=== PATIENT | female | born 1990 | race Caucasian/White ===

== ENCOUNTER 2017-10-19 12:56 | Emergency (ER) | payer OTHER, SELFPAY ==
[2017-10-19] MEDS ORDERED: NA CHLORIDE 0.9% 1,000 ML ONE (14:10)
[2017-10-19] MEDS ORDERED: IBUPROFEN 400 MG TAB ONE (14:10)
[2017-10-19] MEDS ORDERED: METHOCARBAMOL 500 MG TAB ONE (14:11)
[2017-10-19 14:25] LABS: Absolute Lymphocytes (CBC) 2.2 K/uL (0.7-4.9); Absolute Monocytes 0.7 K/uL (0.1-1.3); Absolute Neutrophil 6.3 K/uL (1.8-8.0); Basophils % 0.8 % (0-1.3); Hematocrit 38.6 % (36.0-45.0); MCH 31.4 pg (27.0-35.0); MCV 95.3 fL (80-100); MPV 10.3 fL (7.6-11.3); Monocytes % 7.9 % (3.3-12.3); Protime INR 1.03; RBC Red Blood Cell Count 4.05 M/uL (3.86-4.86)
[2017-10-19 14:37] LABS: Bicarbonate 26 mEq/L (21-31); Glucose Level 104 mg/dL (65-120); Potassium 3.3 mEq/L (3.6-5.0); Sodium Level 140 mEq/L (135-145)
[2017-10-19 14:41] LABS: BUN Blood Urea Nitrogen 6 mg/dL (6-20); Creatine Phosphokinase 456 IU/L (22-269); Glomerular Filtration Rate > 90 mL/min (=/>90)
[2017-10-19 15:26] LABS: Barbiturates NEGATIVE; Benzodiazepines NEGATIVE; Cocaine POSITIVE; METHAMPHETAM NEGATIVE; Opiates NEGATIVE; Phencyclidine NEGATIVE; THC Cannibis NEGATIVE
--- NOTE | 2017-10-19 15:37 | ER ---
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 Transition of care: patient was not received from another setting of care. Onset of symptoms was October 16, 2017. Care prior to arrival: None. 13:13 Method Of Arrival: Ambulatory 13:13 Method Of Arrival: Ambulatory 13:13 Acuity: MARTÍN 4 hj Triage Assessment: 13:16 General: Appears in no apparent distress. uncomfortable, Behavior is calm, cooperative, hj appropriate for age. Pain: Complains of pain in anterior aspect of right shoulder. 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 - Family history:: not pertinent. - Social history:: Smoking status: Patient uses tobacco products, denies chronic smoking, but will smoke occasionally. - Hospitalizations: : No recent hospitalization is reported. Screenin:15 Abuse screen: Denies threats or abuse. Nutritional screening: No deficits noted. tl3 Tuberculosis screening: No symptoms or risk factors identified. Fall Risk None identified. Assessment: 13:16 Neuro: Level of Consciousness is awake, alert, obeys commands, Oriented to person, hj place, time, situation. 13:30 Reassessment: pt reports that she helped her sister move a TV three days ago and has tl3 been having muscle pain ever since, but has gotten worse today. Pt has cutting scars to left wrist area, states that it was a problem in the past, on no medications at this time. General: Appears in no apparent distress. slender, well groomed, well developed, well nourished. Pain:. Neuro: Level of Consciousness is awake, alert, obeys commands, Oriented to person, place, time, situation, Appropriate for age. Cardiovascular: Heart tones S1 S2 present Capillary refill < 3 seconds. Cardiovascular: Rhythm is sinus rhythm. Respiratory: Airway is patent Trachea midline Breath sounds are clear bilaterally. GI: No signs and/or symptoms were reported involving the gastrointestinal system. Abdomen is flat. : No signs and/or symptoms were reported regarding the genitourinary system. EENT: No signs and/or symptoms were reported regarding the EENT system. Derm: No signs and/or symptoms reported regarding the dermatologic system. Musculoskeletal: No signs and/or symptoms reported regarding the musculoskeletal system. 14:56 Reassessment: Patient appears in no apparent distress at this time. No changes from tl3 previously documented assessment. Patient and/or family updated on plan of care and expected duration. Pain level reassessed. Patient is alert, oriented x 3, equal unlabored respirations, skin warm/dry/pink. pt states that she still is feeling pain. 15:37 Reassessment: Patient appears in no apparent distress at this time. No changes from tl3 previously documented assessment. Patient and/or family updated on plan of care and expected duration. Pain level reassessed. Patient is alert, oriented x 3, equal unlabored respirations, skin warm/dry/pink. spoke with pt concerning cocaine use, stressed side effects of irregular HR, and possible heart attack. Pt stated that she only used today because someone told her it would help her pain, which it did not. Vital Signs: 13:17 BP 144 / 91; Pulse 136; Resp 18; Temp 98.1(TE); Pulse Ox 99% on R/A; Weight 61.23 kg; hj Height 5 ft. 0 in. (152.40 cm); Pain 7/10; 14:15 BP 111 / 73; Pulse 103; Resp 16; Pulse Ox 98% ; tl3 15:37 BP 129 / 86; Pulse 94; Resp 16; Pulse Ox 98% ; tl3 13:17 Body Mass Index 26.36 (61.23 kg, 152.40 cm) ED Course: 13:00 Patient arrived in ED. 4 13:15 Triage completed. 13:16 Sara Méndez, PIPPA is Primary Nurse. tl3 13:16 Arm band placed on right wrist. hj 13:22 [facility] kav 13:22 Joshua Arthur MD is Attending Physician. kav 13:50 Initial lab(s) drawn, by me, sent to lab. Inserted saline lock: 22 gauge in left hand, tl3 using aseptic technique. Blood collected. 14:02 EKG done, by ED staff, reviewed by Joshua Arthur MD. at1 14:15 Patient has correct armband on for positive identification. Placed in gown. Bed in low tl3 position. Call light in reach. Side rails up X 1. nurse monitoring on. Pulse ox on. NIBP on. Door closed. Lights dimmed. Warm blanket given. 14:15 No provider procedures requiring assistance completed. tl3 14:56 Urine collected: clean catch specimen, clear. tl3 15:16 Urine Dipstick--Ancillary (enter results) Sent. tl3 16:15 IV discontinued, intact, bleeding controlled, No redness/swelling at site. Pressure iw dressing applied. Administered Medications: 13:55 Drug: NS 0.9% 1000 ml Route: IV; Rate: 1 bolus; Site: left hand; Delivery: Primary tl3 tubing; 14:55 Follow up: IV Status: Completed infusion; IV Intake: 1000ml tl3 13:55 Drug: Ibuprofen 400 mg {Note: pt only wanted to take 400mg.} Route: PO; tl3 14:56 Follow up: Response: No adverse reaction tl3 14:17 Not Given (order changed ): Robaxin 750 mg PO once tl3 14:18 Drug: Robaxin 500 mg Route: PO; tl3 14:56 Follow up: Response: No adverse reaction tl3 15:29 Not Given (no medication available): Dilaudid 0.5 mg IVP once kav 15:35 Drug: Potassium Chloride 20 mEq Route: PO; tl3 15:35 Drug: morphine 4 mg Route: IVP; Infused Over: 3 mins; Site: left hand; tl3 15:36 Drug: Zofran 4 mg Route: IVP; Infused Over: 3 mins; Site: left hand; tl3 Intake: 14:55 IV: 1000ml; Total: 1000ml. tl3 Outcome: 15:36 Discharge ordered by . kav 16:15 Discharged to home ambulatory. iw 16:15 Condition: good 16:15 Discharge instructions given to patient, Instructed on discharge instructions, follow up and referral plans. Demonstrated understanding of instructions, follow-up care, medications, Prescriptions given X 2. 16:31 Patient left the ED. tl3 Signatures: Nikki Tejada, DIRECTOR OF OCCUPATIONAL THERAPY DIRECTOR OF OCCUPATIONAL THERAPY Josie Singh RN RN iw Cami coon, livestock handler EKG Tat1 Taurus Silverman RN Xochilt Sheehan rg4 Sara Méndez RN RN tl3 Corrections: (The following items were deleted from the chart) 13:15 13:13 Presenting complaint: Patient states: at home, i was lifting a TV and mount it on hj the wall and 2 hours after i noticed pain on the R shoulder and R side of the neck; pain with ROM on the affected side; 13:20 13:13 Presenting complaint: Patient states: last Tuesday at home, i was lifting a TV and hj mount it on the wall and 2 hours after i noticed pain on the R shoulder and R side of the neck; pain with ROM on the affected side; 13:20 13:17 Pulse 136bpm; Resp 18bpm; Pulse Ox 99% RA; Temp 98.1F Temporal; 61.23 kg; Height 5 ft. 0 in.; BMI: 26.3; Pain 7/10; 14:15 13:16 PMHx: None; tl3 14:22 13:55 Ibuprofen 800 mg PO tl3 tl3
--- NOTE | 2017-10-19 15:37 | EDPHYS ---
Physician Documentation [facility] Name: Katherine Fragoso Age: 27 yrs Sex: Female : 1990 Arrival Date: 10/19/2017 Time: 13:00 Bed 23 Private MD: ED Physician Joshua Arthur HPI: 10/19 13:22 This 27 yrs old Female presents to ER via Ambulatory with complaints of kav Shoulder Pain, Neck Pain, >24Hrs Old. 13:33 The patient or guardian complains of pain, that is acute, spasm, stiffness. right kav trapezius. Context: The problem was sustained at home, resulted from lifting or carrying, a heavy object, wall mounted television set, The patient experiences decreased range of motion, when attempts to raise arm, The patient reports no obvious deformity. Onset: The symptoms/episode began/occurred acutely, 3 day(s) ago. Modifying factors: the symptoms are alleviated by OTC meds, The symptoms are aggravated by movement. Associated signs and symptoms: The patient has no apparent associated signs or symptoms. Severity of symptoms: At their worst the symptoms were moderate, just prior to arrival. Treatment prior to arrival includes: over the counter medications, Excederin two tabs \T\ 11:30 am. The patient has not experienced similar symptoms in the past. The patient has not recently seen a physician. 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 - Family history:: not pertinent. - Social history:: Smoking status: Patient uses tobacco products, denies chronic smoking, but will smoke occasionally. - Hospitalizations: : No recent hospitalization is reported. ROS: 13:36 Constitutional: Negative for fever, chills, and weight loss, Eyes: Negative for injury, kav pain, redness, and discharge, ENT: Negative for injury, pain, and discharge, Neck: Negative for injury, pain, and swelling, Cardiovascular: Negative for chest pain, palpitations, and edema, Respiratory: Negative for shortness of breath, cough, wheezing, and pleuritic chest pain, Abdomen/GI: Negative for abdominal pain, nausea, vomiting, diarrhea, and constipation, Back: Negative for injury and pain, : Negative for injury, bleeding, discharge, and swelling, Skin: Negative for injury, rash, and discoloration, Neuro: Negative for headache, weakness, numbness, tingling, and seizure, Psych: Negative for depression, anxiety, suicide ideation, homicidal ideation, and hallucinations, Allergy/Immunology: Negative for hives, rash, and allergies, Endocrine: Negative for neck swelling, polydipsia, polyuria, polyphagia, and marked weight changes, Hematologic/Lymphatic: Negative for swollen nodes, abnormal bleeding, and unusual bruising. 13:36 MS/extremity: Positive for pain, tenderness. Exam: 13:36 Constitutional: This is a well developed, well nourished patient who is awake, alert, kav and in no acute distress. Head/Face: Normocephalic, atraumatic. Eyes: Pupils equal round and reactive to light, extra-ocular motions intact. Lids and lashes normal. Conjunctiva and sclera are non-icteric and not injected. Cornea within normal limits. Periorbital areas with no swelling, redness, or edema. ENT: Nares patent. No nasal discharge, no septal abnormalities noted. Tympanic membranes are normal and external auditory canals are clear. Oropharynx with no redness, swelling, or masses, exudates, or evidence of obstruction, uvula midline. Mucous membranes moist. Neck: Trachea midline, no thyromegaly or masses palpated, and no cervical lymphadenopathy. Supple, full range of motion without nuchal rigidity, or vertebral point tenderness. No Meningismus. Chest/axilla: Normal chest wall appearance and motion. Nontender with no deformity. No lesions are appreciated. Cardiovascular: Regular rate and rhythm with a normal S1 and S2. No gallops, murmurs, or rubs. Normal PMI, no JVD. No pulse deficits. Respiratory: Lungs have equal breath sounds bilaterally, clear to auscultation and percussion. No rales, rhonchi or wheezes noted. No increased work of breathing, no retractions or nasal flaring. Abdomen/GI: Soft, non-tender, with normal bowel sounds. No distension or tympany. No guarding or rebound. No evidence of tenderness throughout. Back: No spinal tenderness. No costovertebral tenderness. Full range of motion. Skin: Warm, dry with normal turgor. Normal color with no rashes, no lesions, and no evidence of cellulitis. Neuro: Awake and alert, GCS 15, oriented to person, place, time, and situation. Cranial nerves II-XII grossly intact. Motor strength 5/5 in all extremities. Sensory grossly intact. Cerebellar exam normal. Normal gait. Psych: Awake, alert, with orientation to person, place and time. Behavior, mood, and affect are within normal limits. 13:36 Musculoskeletal/extremity: Extremities: noted in the right trapezius and right scapular area: ROM: limited active range of motion, Circulation is intact in all extremities. Pulses: are normal with no appreciated deficits, Perfusion: the patient is normally perfused throughout, pink, warm, noted to have brisk capillary refill, Perfusion: the extremity is normally perfused throughout, pink, warm, with brisk capillary refill, Sensation intact. Joints: Tendon exam: specific tendon testing normal through active and passive range of motion Vital Signs: 13:17 BP 144 / 91; Pulse 136; Resp 18; Temp 98.1(TE); Pulse Ox 99% on R/A; Weight 61.23 kg; hj Height 5 ft. 0 in. (152.40 cm); Pain 7/10; 14:15 BP 111 / 73; Pulse 103; Resp 16; Pulse Ox 98% ; tl3 15:37 BP 129 / 86; Pulse 94; Resp 16; Pulse Ox 98% ; tl3 13:17 Body Mass Index 26.36 (61.23 kg, 152.40 cm) hj MDM: 13:22 Patient medically screened. kav 15:10 Data reviewed: vital signs, nurses notes, lab test result(s). ED course: c/o nausea and kav continued neck pain. 10/19 13:39 Order name: Basic Metabolic Panel kav 10/19 13:39 Order name: CBC with Diff v 10/19 13:39 Order name: Ckmb kav 10/19 13:39 Order name: CPK kav 10/19 13:39 Order name: PT-INR kav 10/19 13:39 Order name: Ptt, Activated kav 10/19 13:39 Order name: Troponin (emerg Dept Use Only) kav 10/19 14:02 Order name: Urine Drug Screen v 10/19 14:28 Order name: Protime (+INR); Complete Time: 15:07 EDMS 10/19 15:07 Interpretation: Within normal limits. 10/19 14:28 Order name: PTT, Activated Partial Thromb; Complete Time: 15:07 EDMS 10/19 15:07 Interpretation: Within normal limits. 10/19 14:28 Order name: CBC with Automated Diff; Complete Time: 15:05 EDMS 10/19 15:05 Interpretation: Within normal limits. 10/19 14:38 Order name: Basic Metabolic Panel; Complete Time: 15:06 EDMS 10/19 15:06 Interpretation: Normal except: K 3.3. 10/19 14:41 Order name: Creatine Phosphokinase; Complete Time: 15:07 EDMS 10/19 15:07 Interpretation: Abnormal: CPK 456. 10/19 14:45 Order name: Troponin (Emerg Dept Use Only); Complete Time: 15:06 EDMS 10/19 15:06 Interpretation: Within normal limits. 10/19 13:39 Order name: EKG; Complete Time: 13:40 v 10/19 13:39 Order name: Cardiac monitoring; Complete Time: 13:48 10/19 13:39 Order name: EKG - Nurse/Tech; Complete Time: 13:48 v 10/19 13:39 Order name: IV Saline Lock; Complete Time: 13:48 10/19 14:48 Order name: CKMB Creatine Kinase MB; Complete Time: 15:05 EDMS 10/19 15:05 Interpretation: Within normal limits. 10/19 15:11 Order name: Urine Dipstick--Ancillary (enter results) ms 10/19 15:26 Order name: Urine Drug Screen; Complete Time: 15:29 EDMS 10/19 15:29 Interpretation: Normal except: ELOINA POSITIVE. 10/19 15:43 Order name: Urine Dipstick-Ancillary; Complete Time: 16:04 EDMS 10/19 16:04 Interpretation: Within normal limits. 10/19 13:39 Order name: Labs collected and sent; Complete Time: 13:48 10/19 13:39 Order name: O2 Per Protocol; Complete Time: 13:48 10/19 13:39 Order name: O2 Sat Monitoring; Complete Time: 13:48 kav 10/19 13:39 Order name: Urine Dipstick-Ancillary (obtain specimen); Complete Time: 15:11 kav Administered Medications: 13:55 Drug: NS 0.9% 1000 ml Route: IV; Rate: 1 bolus; Site: left hand; Delivery: Primary tl3 tubing; 14:55 Follow up: IV Status: Completed infusion; IV Intake: 1000ml tl3 13:55 Drug: Ibuprofen 400 mg {Note: pt only wanted to take 400mg.} Route: PO; tl3 14:56 Follow up: Response: No adverse reaction tl3 14:17 Not Given (order changed ): Robaxin 750 mg PO once tl3 14:18 Drug: Robaxin 500 mg Route: PO; tl3 14:56 Follow up: Response: No adverse reaction tl3 15:29 Not Given (no medication available): Dilaudid 0.5 mg IVP once kav 15:35 Drug: Potassium Chloride 20 mEq Route: PO; tl3 15:35 Drug: morphine 4 mg Route: IVP; Infused Over: 3 mins; Site: left hand; tl3 15:36 Drug: Zofran 4 mg Route: IVP; Infused Over: 3 mins; Site: left hand; tl3 Disposition: 17:31 Co-signature as Attending Physician, Joshua Arthur MD I agree with the assessment and kdr plan of care. Disposition: 10/19/17 15:36 Discharged to Home. Impression: Other muscle spasm, Cocaine abuse. - Condition is Stable. - Discharge Instructions: Muscle Cramps and Spasms, Heat Therapy. - Prescriptions for Ibuprofen 800 mg Oral Tablet - take 1 tablet by ORAL route every 8 hours As needed take with food; 30 tablet. Robaxin 500 mg Oral Tablet - take 2 tablets by ORAL route every 6 hours As needed; 30 tablet. - Medication Reconciliation Form, Thank You Letter, Antibiotic Education, Prescription Opioid Use form. - Follow up: Private Physician; When: 1 - 2 days; Reason: Recheck today's complaints, Continuance of care, Re-evaluation by your physician. - Problem is new. - Symptoms have improved. Signatures: Dispatcher MedHo EDWI Joshua Arthur MD MD kdr Vern, Katherine, KID CLUB ATTENDANT KID CLUB ATTENDANT ka Taurus Silverman RN RN hj Lowrey, Tammy, RN RN tl3 Corrections: (The following items were deleted from the chart) 14:15 13:16 PMHx: None; porsche tl3
[2017-10-19 15:42] LABS: Urine Blood NEGATIVE (NEG); Urine Glucose NEGATIVE (NEG); Urine Protein NEGATIVE (NEG); Urine Specific Gravity <1.005 (1.005-1.030); Urine pH 6.5 (5.0-7.0)
[2017-10-19] MEDS ORDERED: ONDANSETRON 4 MG/2 ML VIAL ONE (15:43)
[2017-10-19] MEDS ORDERED: POTASSIUM CL SA 10 MEQ TAB PO ONE (15:43)
[2017-10-19] MEDS ORDERED: MORPHINE 4 MG/ML SYR ONE (15:49)
--- NOTE | 2017-10-20 07:28 | EKG ---
Test Date: 2017-10-19 Test Time: 13:27:10 Tetryl Screen Operator: JINA MEASUREMENT RESULTS: Intervals: Rate: 126 AK: 150 QRSD: 70 QT: 320 QTc: 463 Wolsey: P: 68 AK: 150 QRS: 33 T: 43 INTERPRETIVE STATEMENTS: Sinus tachycardia with premature atrial complexes with aberrant conduction Otherwise normal ECG No previous ECG available for comparison Electronically Signed On 10-20-17 07:27:43 CDT by Imer Crisostomo
== END 2017-10-19 16:31 | disposition home or self-care (01) ==
LOC: ER 12:56
DX: M62.838 Other muscle spasm (principal); F14.10 Cocaine abuse, uncomplicated; X50.0XXA Overexertion from strenuous movement or load, initial encounter; Y93.89 Activity, other specified; Y92.009 Unspecified place in unspecified non-institutional (private) residence as the place of occurrence of the external cause; Z72.0 Tobacco use
CPT/HCPCS: 36415; 80048; 80307; 81003; 82550; 82553; 84484; 85025; 85610; 85730; 93005; 96361; 96374; 96375; 99284; J2405; J7030